=== PATIENT | male | born 1945 | race Caucasian/White ===

== ENCOUNTER 2017-06-07 18:58 | Inpatient (IN) | payer OTHER ==
[~2017-06-07] VITALS: Ht 175.3 cm; Wt 77.4 kg
[2017-06-07 20:49] LABS: Basophils # (auto) 0 uL; Basophils % (auto) 0.4 % (0.0-2.0); Eosinophils # (auto) 0.1 uL; Eosinophils % (auto) 0.8 % (0.0-7.0); Hematocrit 46.3 % (41.0-53.0); Hemoglobin 15.9 g/dL (13.5-17.5); Lymphocytes # (auto) 0.3 uL; Lymphocytes % (auto) 4.3 % (10.0-50.0); Mean Corpuscular Hemoglobin 30.7 pg (28.0-32.0); Mean Corpuscular Hgb Conc. 34.3 g/dL (32.0-36.0); Mean Corpuscular Volume 89.6 fL (80.0-100.0); Monocytes # (auto) 0.4 uL; Monocytes % (auto) 5.2 % (0.0-12.0); Neutrophils # (auto) 7.2 uL; Neutrophils % (auto) 89.3 % (37.0-80.0); Platelet Count (auto) 169 10^3/uL (140-450); Red Blood Cells 5.17 10^6/uL (4.5-5.90); White Blood Cell 8.1 10^3/uL (4.4-10.8)
[2017-06-07 21:10] LABS: Albumin 3.9 g/dL (3.4-5.0); BUN/Creatinine Ratio 15.8; Bilirubin, Total 0.5 mg/dL (0.2-1.0); Calcium 8.5 mg/dL (8.5-10.1); Potassium 3.9 mmol/L (3.5-5.1); Total Protein 7.5 g/dL (6.4-8.2)
[2017-06-07] MEDS ORDERED: ENOXAPARIN SOD 100 MG/1 ML SYRINGE SC ONE (23:00)
[2017-06-07] MEDS ORDERED: ASPirin 81 mg TAB PO ONE (23:00)
[2017-06-07 23:06] LABS: Urine Bacteria NONE SEEN /hpf (None Seen); Urine Blood Negative /uL (Negative); Urine Specific Gravity 1.016 (1.001-1.035); Urine WBC <1 /hpf (0 - 3)
[2017-06-07] MEDS ORDERED: cloNIDine HCL 0.1 MG TAB PO ONE (23:30)
[2017-06-07] MEDS ORDERED: ACETAMINOPHEN 325 MG TAB PO ONE (23:45)
[2017-06-08] MEDS ORDERED: FUROSEMIDE 20 MG/2 ML VIAL ONE (00:36)
[2017-06-08] MEDS ORDERED: FUROSEMIDE 20 MG/2 ML VIAL IV ONE (00:45)
[2017-06-08] MEDS ORDERED: DEXTROSE (50%) 50ML SYRG IV PRN (03:00)
[2017-06-08] MEDS ORDERED: NITROGLYCERIN 0.4 MG SL TAB SL PRN (03:00)
[2017-06-08] MEDS ORDERED: ONDANSETRON HCL 4 MG/2 ML VIAL IV PRN (03:00)
[2017-06-08] MEDS ORDERED: HYDROcodone-ACET 5/325MG TAB PO PRN (03:00)
[2017-06-08] MEDS ORDERED: TEMAZEPAM 15 MG CAP PO PRN (03:00)
[2017-06-08] MEDS ORDERED: MORPHINE SULF INJ 2 MG/ML SYRINGE 1ML IV PRN (03:00)
[2017-06-08] MEDS ORDERED: ACETAMINOPHEN 325 MG TAB PO PRN (03:00)
[2017-06-08 03:42] LABS: INR 1.52 (0.9-1.15); Partial Thromboplastin Time 46.7 sec (22.64-33.71); Prothrombin Time 16.6 sec (9.37-12.3)
[2017-06-08] MEDS ORDERED: IOHEXOL 350 MG/ML 100ML IJ ONE (04:37)
[2017-06-08] MEDS: InsuLIN REG 1unit/0.01ml Soln (100units/ml) SC SCH ×4 (05:39→23:27)
[2017-06-08] MEDS: ACCU-CHEK COMFORT CURVE STRIP VI SCH ×4 (05:40→23:27)
[2017-06-08] MEDS: cloNIDine HCL 0.1 MG TAB PO PRN ×2 (07:53→17:37)
[2017-06-08] MEDS ORDERED: ENOXAPARIN SOD 40 MG/0.4 ML SYRINGE SC SCH (10:00)
[2017-06-08] MEDS: FUROSEMIDE 20 MG TAB PO SCH (10:02)
[2017-06-08] MEDS: LISINOPRIL 20 MG TAB PO SCH (10:02)
[2017-06-08] MEDS: ENOXAPARIN SOD 100 MG/1 ML SYRINGE SC SCH ×2 (10:02→21:39)
[2017-06-08] MEDS: FAMOTIDINE 20 MG TAB PO SCH ×2 (10:02→21:39)
[2017-06-08] MEDS: ASPirin 81 mg TAB PO SCH (10:02)
[2017-06-08] MEDS: DONEPEZIL HYDROCHLORIDE 5 MG TAB PO SCH (21:38)
[2017-06-08] MEDS: ATORVASTATIN 20 MG TAB PO SCH (21:39)
[2017-06-09] MEDS: cloNIDine HCL 0.1 MG TAB PO PRN ×2 (00:08→18:10)
[2017-06-09] MEDS: InsuLIN REG 1unit/0.01ml Soln (100units/ml) SC SCH ×4 (05:32→23:56)
[2017-06-09] MEDS: ACCU-CHEK COMFORT CURVE STRIP VI SCH ×4 (05:32→23:56)
[2017-06-09 06:32] LABS: Basophils # (auto) 0 uL; Basophils % (auto) 0.4 % (0.0-2.0); Eosinophils # (auto) 0 uL; Eosinophils % (auto) 0.3 % (0.0-7.0); Hematocrit 44.4 % (41.0-53.0); Lymphocytes # (auto) 0.7 uL; Lymphocytes % (auto) 17.4 % (10.0-50.0); Mean Corpuscular Hemoglobin 30.2 pg (28.0-32.0); Mean Corpuscular Hgb Conc. 33.8 g/dL (32.0-36.0); Mean Corpuscular Volume 89.4 fL (80.0-100.0); Monocytes # (auto) 0.5 uL; Monocytes % (auto) 12.4 % (0.0-12.0); Neutrophils % (auto) 69.5 % (37.0-80.0); Nucleated Red Blood Cells % 0.3 %; Platelet Count (auto) 115 10^3/uL (140-450); Red Blood Cells 4.97 10^6/uL (4.5-5.90); Red Cell Distribution Width 15.2 % (11.8-14.3); White Blood Cell 4.3 10^3/uL (4.4-10.8)
[2017-06-09 06:42] LABS: Potassium 3.5 mmol/L (3.5-5.1)
[2017-06-09 06:47] LABS: Albumin 3.2 g/dL (3.4-5.0); BUN/Creatinine Ratio 23.2; Calcium 8.2 mg/dL (8.5-10.1)
[2017-06-09 06:52] LABS: Bilirubin, Total 0.6 mg/dL (0.2-1.0); Total Protein 6.7 g/dL (6.4-8.2)
[2017-06-09] MEDS: FUROSEMIDE 20 MG TAB PO SCH (10:30)
[2017-06-09] MEDS: CLOPIDOGREL BISULFATE 75 MG TAB PO SCH (10:30)
[2017-06-09] MEDS: ENOXAPARIN SOD 100 MG/1 ML SYRINGE SC SCH ×2 (10:30→21:54)
[2017-06-09] MEDS: LISINOPRIL 20 MG TAB PO SCH (10:30)
[2017-06-09] MEDS: ASPirin 81 mg TAB PO SCH (10:30)
[2017-06-09] MEDS: FAMOTIDINE 20 MG TAB PO SCH ×2 (10:30→22:33)
[2017-06-09] MEDS: LEVOFLOXACIN 500MG 100 ML IV SCH (10:53)
[2017-06-09] MEDS ORDERED: LORazepam 2MG/ML-1ML VIAL IV PRN (16:30)
[2017-06-09 16:53] LABS: Cholesterol 123 mg/dL (< 200); HDL Cholesterol 38 mg/dL (40-59); LDL Cholesterol 79 mg/dL (< 100); Triglycerides 71 mg/dL (< 150)
[2017-06-09] MEDS: ATORVASTATIN 20 MG TAB PO SCH (22:32)
[2017-06-09] MEDS: DONEPEZIL HYDROCHLORIDE 5 MG TAB PO SCH (22:32)
[2017-06-10] MEDS: InsuLIN REG 1unit/0.01ml Soln (100units/ml) SC SCH ×3 (06:00→18:00)
[2017-06-10] MEDS: ACCU-CHEK COMFORT CURVE STRIP VI SCH ×3 (06:00→18:00)
[2017-06-10] MEDS: ASPirin 81 mg TAB PO SCH (09:20)
[2017-06-10] MEDS: LISINOPRIL 20 MG TAB PO SCH (09:21)
[2017-06-10] MEDS: CLOPIDOGREL BISULFATE 75 MG TAB PO SCH (09:21)
[2017-06-10] MEDS: FAMOTIDINE 20 MG TAB PO SCH ×2 (09:21→21:31)
[2017-06-10] MEDS: FUROSEMIDE 20 MG TAB PO SCH (09:21)
[2017-06-10] MEDS: ENOXAPARIN SOD 100 MG/1 ML SYRINGE SC SCH ×2 (09:21→21:31)
[2017-06-10] MEDS: LEVOFLOXACIN 500MG 100 ML IV SCH (09:42)
[2017-06-10] MEDS: SODIUM CHLORIDE 0.9% 1,000 ML IV SCH ×2 (09:42→23:18)
[2017-06-10] MEDS ORDERED: LIDOCAINE 2%HCL (LOCAL ANESTH.) INJ 20ML MDV ONE (12:46)
[2017-06-10] MEDS ORDERED: IOHEXOL 350 MG/ML 100ML IJ ONE (12:46)
[2017-06-10] MEDS ORDERED: ASPI81CH43 PO (13:02)
[2017-06-10] MEDS ORDERED: LISI-646 PO (13:02)
[2017-06-10] MEDS ORDERED: ATOR20TA50 PO (13:02)
[2017-06-10] MEDS ORDERED: CLOP75TA28 PO (13:02)
[2017-06-10] MEDS ORDERED: fentaNYL CITRATE 100 MCG/2 ML VL ONE (13:08)
[2017-06-10] MEDS ORDERED: ANGIOMAX 250 MG VIAL IV ONE (13:08)
[2017-06-10] MEDS ORDERED: MIDAZOLAM HCL 1MG/1ML-2 ML VIAL ONE (13:09)
[2017-06-10] MEDS ORDERED: LORazepam 2MG/ML-1ML VIAL IV PRN (13:15)
[2017-06-10] MEDS ORDERED: CLOPIDOGREL 300 MG TAB ONE (13:34)
[2017-06-10] MEDS ORDERED: ACETAMINOPHEN 500 MG TAB PO PRN (14:30)
[2017-06-10] MEDS ORDERED: HYDROcodone-ACET 5/325MG TAB PO PRN (14:30)
[2017-06-10] MEDS ORDERED: ONDANSETRON HCL 4 MG/2 ML VIAL IV PRN (14:30)
[2017-06-10] MEDS: cloNIDine HCL 0.1 MG TAB PO PRN (14:49)
[2017-06-10 17:00] VITALS: BP 148/88
[2017-06-10] MEDS: ATORVASTATIN 20 MG TAB PO SCH (21:30)
[2017-06-10 22:00] VITALS: BP 156/86
[2017-06-11] MEDS: ENOXAPARIN SOD 100 MG/1 ML SYRINGE SC SCH ×2 (01:10→10:00)
[2017-06-11] MEDS: SODIUM CHLORIDE 0.9% 1,000 ML IV SCH (04:41)
[2017-06-11 06:00] VITALS: BP 156/92
[2017-06-11] MEDS: InsuLIN REG 1unit/0.01ml Soln (100units/ml) SC SCH ×3 (06:00→12:00)
[2017-06-11] MEDS: ACCU-CHEK COMFORT CURVE STRIP VI SCH ×3 (06:00→12:00)
[2017-06-11 08:00] VITALS: BP 162/86
[2017-06-11] MEDS: FAMOTIDINE 20 MG TAB PO SCH (10:38)
[2017-06-11] MEDS: ASPirin 81 mg TAB PO SCH (10:38)
[2017-06-11] MEDS: LISINOPRIL 20 MG TAB PO SCH (10:39)
[2017-06-11] MEDS: CLOPIDOGREL BISULFATE 75 MG TAB PO SCH (10:39)
[2017-06-11 12:00] VITALS: BP 194/72
[2017-06-11] MEDS ORDERED: LISI-646 PO (14:06)
[2017-06-11 14:14] VITALS: BP 167/70
[2017-06-11 14:21] VITALS: BP 167/70
== END 2017-06-11 16:00 | disposition home health service (06) | DRG 246 ==
LOC: EDBD 18:58 → ER 19:03 → OVERFLOW 19:04 → TELE-WESTW 06-10 16:09
PROVIDERS: ADMIT Nurse Practitioner; ATTEND Internal Medicine
PROC: 027034Z Dilation of Coronary Artery, One Artery with Drug-eluting Intraluminal Device, Percutaneous Approach (ICD-10-PCS; principal; 2017-06-10)
PROC: 4A023N7 Measurement of Cardiac Sampling and Pressure, Left Heart, Percutaneous Approach (ICD-10-PCS; 2017-06-10)
PROC: B2111ZZ Fluoroscopy of Multiple Coronary Arteries using Low Osmolar Contrast (ICD-10-PCS; 2017-06-10)
PROC: B2151ZZ Fluoroscopy of Left Heart using Low Osmolar Contrast (ICD-10-PCS; 2017-06-10)
DX: I21.4 Non-ST elevation (NSTEMI) myocardial infarction (principal); I50.43 Acute on chronic combined systolic (congestive) and diastolic (congestive) heart failure; Z93.0 Tracheostomy status; E10.21 Type 1 diabetes mellitus with diabetic nephropathy; G40.89 Other seizures; I13.0 Hypertensive heart and chronic kidney disease with heart failure and stage 1 through stage 4 chronic kidney disease, or unspecified chronic kidney disease; I25.10 Atherosclerotic heart disease of native coronary artery without angina pectoris; K21.9 Gastro-esophageal reflux disease without esophagitis; F17.210 Nicotine dependence, cigarettes, uncomplicated; E10.22 Type 1 diabetes mellitus with diabetic chronic kidney disease; N18.2 Chronic kidney disease, stage 2 (mild); K52.9 Noninfective gastroenteritis and colitis, unspecified; J44.9 Chronic obstructive pulmonary disease, unspecified; Z91.19 Patient's noncompliance with other medical treatment and regimen; Z95.5 Presence of coronary angioplasty implant and graft; Z95.1 Presence of aortocoronary bypass graft; I25.2 Old myocardial infarction; Z86.73 Personal history of transient ischemic attack (TIA), and cerebral infarction without residual deficits
CPT/HCPCS: 36415; 70450; 71045; 71275; 80053; 80061; 81001; 82607; 82962; 83036; 83605; 83880; 84443; 84484; 85025; 85379; 85610; 85730; 87040; 92928; 93005; 93306; 93458; 93886; 94761; 95819; 96372; 96374; 99152; C1874; G0378; J1815; J1956; J2250

== ENCOUNTER 2017-07-30 09:41 | Inpatient (IN) | payer OTHER ==
[~2017-07-30] VITALS: Ht 175.3 cm; Wt 82.0 kg
[~2017-07-30 09:41] MED LIST: ASPI81CH43 PO; ATOR20TA50 PO; CLOP75TA28 PO; LISI-646 PO
[2017-07-30 11:00] LABS: Basophils # (auto) 0 uL; Basophils % (auto) 0.5 % (0.0-2.0); Eosinophils # (auto) 0.4 uL; Eosinophils % (auto) 5.2 % (0.0-7.0); Hematocrit 44.3 % (41.0-53.0); Hemoglobin 15.1 g/dL (13.5-17.5); Lymphocytes # (auto) 1.8 uL; Lymphocytes % (auto) 22.2 % (10.0-50.0); Mean Corpuscular Hemoglobin 30.2 pg (28.0-32.0); Mean Corpuscular Volume 88.8 fL (80.0-100.0); Monocytes # (auto) 0.6 uL; Monocytes % (auto) 7.8 % (0.0-12.0); Neutrophils # (auto) 5.1 uL; Neutrophils % (auto) 64.3 % (37.0-80.0); Nucleated Red Blood Cells % 0.1 %; Platelet Count (auto) 215 10^3/uL (140-450); Red Blood Cells 4.99 10^6/uL (4.5-5.90); Red Cell Distribution Width 14.7 % (11.8-14.3)
[2017-07-30 11:15] LABS: Alanine Aminotransferase 38 U/L (16-61); Albumin 3.5 g/dL (3.4-5.0); Alkaline Phosphatase 111 U/L (45-117); Anion Gap 8 (5-15); Aspartate Aminotransferase 18 U/L (15-37); BUN/Creatinine Ratio 17.9; Bilirubin, Total 0.4 mg/dL (0.2-1.0); Blood Urea Nitrogen 17 mg/dL (7-18); Calcium 9.2 mg/dL (8.5-10.1); Carbon Dioxide 27 mmol/L (21-32); Chloride 105 mmol/L (98-107); GFR African American 100 mL/min; GFR Non-African American 82 mL/min; Glucose 143 mg/dL (74-106); Magnesium 2.3 mg/dL (1.6-2.6); Potassium 4.4 mmol/L (3.5-5.1); Sodium 140 mmol/L (136-145); Total Protein 7.5 g/dL (6.4-8.2)
[2017-07-30 11:40] LABS: Urine Bacteria NONE SEEN /hpf (None Seen); Urine Blood 1+ /uL (Negative); Urine Specific Gravity 1.009 (1.001-1.035); Urine WBC 2 /hpf (0 - 3)
[2017-07-30 12:19] LABS: INR 0.94 (0.9-1.15); Partial Thromboplastin Time 27.3 sec (22.64-33.71); Prothrombin Time 10.2 sec (9.37-12.3)
[2017-07-30] MEDS ORDERED: ACETAMINOPHEN 500 MG TAB PO PRN (13:00)
[2017-07-30] MEDS ORDERED: MORPHINE SULFATE 4 MG/ML SYR/VIAL IV PRN ×2 (13:00)
[2017-07-30] MEDS ORDERED: TEMAZEPAM 15 MG CAP PO PRN (13:00)
[2017-07-30] MEDS ORDERED: NITROGLYCERIN 0.4 MG SL TAB SL PRN (13:00)
[2017-07-30] MEDS ORDERED: HYDROcodone-ACET 5/325MG TAB PO PRN (13:00)
[2017-07-30] MEDS ORDERED: DEXTROSE (50%) 50ML SYRG IV PRN (13:00)
[2017-07-30] MEDS ORDERED: PROMETHAZINE HCL 25 MG/ML 1ML IV PRN (13:00)
[2017-07-30] MEDS ORDERED: LACTULOSE 20Gm/30ML SOLN PO PRN (13:00)
[2017-07-30] MEDS ORDERED: LORazepam 0.5 MG TAB PO PRN (13:00)
[2017-07-30] MEDS ORDERED: ASPirin 81 mg TAB PO ONE ×2 (13:15)
[2017-07-30] MEDS ORDERED: ENOXAPARIN SOD 40 MG/0.4 ML SYRINGE SC ONE (13:15)
[2017-07-30] MEDS ORDERED: LISINOPRIL 20 MG TAB PO ONE (13:15)
[2017-07-30] MEDS ORDERED: METOPROLOL TARTRATE 25 MG TAB PO ONE (13:15)
[2017-07-30] MEDS ORDERED: NITROGLYCERIN 0.2MG/HR TOPICAL PATCH TD ONE (13:15)
[2017-07-30] MEDS ORDERED: CLOPIDOGREL BISULFATE 75 MG TAB PO ONE (13:15)
[2017-07-30] MEDS: SODIUM CHLORIDE 0.9% 1,000 ML IV SCH (13:18)
[2017-07-30 14:49] LABS: CRP High Sensitivity 0.88 mg/dL (< 0.3)
[2017-07-30] MEDS: ACCU-CHEK COMFORT CURVE STRIP VI SCH ×2 (17:35→22:00)
[2017-07-30] MEDS: InsuLIN REG 1unit/0.01ml Soln (100units/ml) SC SCH ×2 (17:45→22:00)
[2017-07-30] MEDS ORDERED: LABETALOL HCL 5 MG/ML ML 20ML VIAL IV PRN ×2 (19:30)
[2017-07-30] MEDS ORDERED: ATORVASTATIN 20 MG TAB PO SCH ×2 (22:00)
[2017-07-30] MEDS: METOPROLOL TARTRATE 25 MG TAB PO SCH (22:00)
[2017-07-30 22:05] VITALS: BP 152/90
[2017-07-30 22:06] VITALS: BP 169/89
[2017-07-30 22:16] VITALS: BP 157/77
[2017-07-31] MEDS: SODIUM CHLORIDE 0.9% 1,000 ML IV SCH (02:13)
[2017-07-31 05:00] VITALS: BP 159/62
[2017-07-31] MEDS: InsuLIN REG 1unit/0.01ml Soln (100units/ml) SC SCH ×2 (06:37→11:30)
[2017-07-31] MEDS: ACCU-CHEK COMFORT CURVE STRIP VI SCH ×2 (06:37→11:30)
[2017-07-31 07:17] LABS: Cholesterol 132 mg/dL (< 200); HDL Cholesterol 32 mg/dL (40-59); LDL Cholesterol 85 mg/dL (< 100); Triglycerides 171 mg/dL (< 150)
[2017-07-31 08:00] VITALS: BP 158/76
[2017-07-31] MEDS ORDERED: ADENOSINE 69 MG in GIVE UN-DILUTED 0 ML IV ONE (09:15)
[2017-07-31] MEDS ORDERED: CLOPIDOGREL BISULFATE 75 MG TAB PO SCH (10:00)
[2017-07-31] MEDS ORDERED: ENOXAPARIN SOD 40 MG/0.4 ML SYRINGE SC SCH (10:00)
[2017-07-31] MEDS ORDERED: LISINOPRIL 20 MG TAB PO SCH (10:00)
[2017-07-31] MEDS ORDERED: ASPirin 81 mg TAB PO SCH ×2 (10:00)
[2017-07-31] MEDS: METOPROLOL TARTRATE 25 MG TAB PO SCH (10:00)
[2017-07-31] MEDS ORDERED: NITROGLYCERIN 0.2MG/HR TOPICAL PATCH TD SCH (10:00)
[2017-07-31 10:28] VITALS: BP 175/79
[2017-07-31 12:00] VITALS: BP 159/67
[2017-07-31 13:25] VITALS: BP 152/96
== END 2017-07-31 14:00 | disposition home or self-care (01) | DRG 313 ==
LOC: EDBD 09:41 → ER 09:41 → TELE 09:42 → TELE-EAST 19:42
PROVIDERS: ADMIT Internal Medicine; ATTEND Internal Medicine
DX: R07.89 Other chest pain (principal); I25.10 Atherosclerotic heart disease of native coronary artery without angina pectoris; E11.9 Type 2 diabetes mellitus without complications; F17.210 Nicotine dependence, cigarettes, uncomplicated; I10 Essential (primary) hypertension; Z82.49 Family history of ischemic heart disease and other diseases of the circulatory system; Z95.5 Presence of coronary angioplasty implant and graft; Z81.8 Family history of other mental and behavioral disorders; Z82.3 Family history of stroke; Z83.3 Family history of diabetes mellitus; Z83.49 Family history of other endocrine, nutritional and metabolic diseases
CPT/HCPCS: 36415; 71045; 78452; 80053; 80061; 81001; 82550; 82962; 83036; 83735; 83880; 84443; 84484; 85025; 85379; 85610; 85652; 85730; 86141; 87081; 93005; 93017; 94761; 96372; J0153; J1815